=== PATIENT | female | born 1965 | race Native Hawaiian/Other Pacific Islander ===

== ENCOUNTER 2017-01-17 03:06 | Emergency (ER) | payer OTHER ==
[~2017-01-17] VITALS: Ht 162.6 cm; Wt 83.9 kg
[2017-01-17 03:15] VITALS: BP 119/84; TEMP 98.3
== END 2017-01-17 03:34 | disposition home or self-care (01) ==
LOC: ED 03:06
DX: K08.109 Complete loss of teeth, unspecified cause, unspecified class (principal); L65.9 Nonscarring hair loss, unspecified; L53.9 Erythematous condition, unspecified
CPT/HCPCS: 99281

== ENCOUNTER 2017-08-26 20:18 | Emergency (ER) | payer OTHER ==
[~2017-08-26] VITALS: Ht 162.6 cm; Wt 74.8 kg
[2017-08-26 23:11] VITALS: BP 129/75; TEMP 97.6
== END 2017-08-26 23:37 | disposition home or self-care (01) ==
LOC: ED 20:18
DX: R21 Rash and other nonspecific skin eruption (principal); M54.5 Low back pain
CPT/HCPCS: 99281

== ENCOUNTER 2018-07-19 21:36 | Emergency (ER) | payer OTHER ==
[~2018-07-19] VITALS: Ht 162.6 cm; Wt 74.8 kg
[2018-07-20 00:25] VITALS: BP 145/86; TEMP 98.1
== END 2018-07-19 23:25 | disposition home or self-care (01) ==
LOC: ED 21:36
DX: S00.33XA Contusion of nose, initial encounter (principal); S00.93XA Contusion of unspecified part of head, initial encounter; W01.10XA Fall on same level from slipping, tripping and stumbling with subsequent striking against unspecified object, initial encounter
CPT/HCPCS: 99283